=== PATIENT | female | born 1985 | race Caucasian/White ===

== ENCOUNTER 2017-11-24 03:14 | Emergency (ER) | payer OTHER ==
[~2017-11-24] VITALS: Ht 170.2 cm; Wt 95.8 kg
[2017-11-24] MEDS ORDERED: KETOROLAC 15 MG/ML VIAL. IV ONE (04:15)
[2017-11-24] MEDS ORDERED: KETOROLAC 60 MG/2 ML VIAL. IM ONE ×2 (04:23→05:00)
[2017-11-24] MEDS ORDERED: PROCHLORPERAZINE 10 MG/2 ML VIAL. IM ONE (04:30)
[2017-11-24] MEDS ORDERED: IV NORMAL SALINE 1,000ML 1,000 ML IV ONE (04:30)
[2017-11-24] MEDS ORDERED: LIDO:MAALOX 1:1 20 ML SINGLE DOSE PO ONE (04:30)
[2017-11-24 04:36] LABS: BARBITURATES NEG (NEG); BENZODIAZEPINES NEG (NEG); CANNABINOIDS NEG (NEG); COCAINE NEG (NEG); METHADONE NEG (NEG); OPIATES NEG (NEG); PHENCYCLIDINE NEG (NEG)
[2017-11-24 04:39] LABS: CLARITY,URINE CLOUDY; COLOR,URINE AMBER
[2017-11-24 04:40] LABS: BACTERIA,URINE MANY /HPF (0-FEW); BILIRUBIN,URINE NEG (NEG); GLUCOSE,URINE NEG (NEG); NITRITE,URINE POS (NEG); RBC,URINE 20-40 /HPF (0-2); SQUAMOUS EPITHELIAL CELL,UR MOD /LPF; UROBILINOGEN,URINE 4 mg/dL (0.2 mg/dL); WBC,URINE >40 /HPF (0-4)
[2017-11-24 04:42] LABS: AMPHETAMINE/METHAMPHETAMINE POS (NEG)
--- NOTE | 2017-11-24 05:29 | PHYS DOC ---
Past History Past Medical History: No Pertinent History Past Medical History Drug abuse, methamphetamine abuse Past Surgical History: , Tonsillectomy Alcohol Use: None Drug Use: None Adult General Chief Complaint Chief Complaint: RIB PAIN HPI HPI Patient is a 32-year-old female presents with complaints of back and rib pain and right lower chest wall for 3 days as well as headache. Headache is similar to previous. No fevers, no neck pain, no vomiting, no diarrhea. Patient has been having foul-smelling urine, denies any vaginal discharge. Patient initially stated that she does not use recreational drugs. No history of recent trauma or sick contacts Review of Systems Review of Systems Constitutional: Denies fever or chills [] Eyes: Denies change in visual acuity, redness, or eye pain [] HENT: Denies nasal congestion or sore throat [] Respiratory: Denies cough or shortness of breath [] Cardiovascular: No additional information not addressed in HPI [] GI: Denies abdominal pain, nausea, vomiting, bloody stools or diarrhea [] : Denies dysuria or hematuria [] Musculoskeletal: Denies back pain or joint pain [] Integument: Denies rash or skin lesions [] Neurologic: Denies headache, focal weakness or sensory changes [] Endocrine: Denies polyuria or polydipsia [] All other systems were reviewed and found to be within normal limits, except as documented in this note. Current Medications Current Medications Current Medications Medications (Trade) Dose Ordered Sig/Ronni Start Time Stop Time Status Last Admin Dose Admin Ketorolac Tromethamine (Toradol) 60 mg 1X ONCE 11/24/17 05:00 11/24/17 05:01 DC 11/24/17 04:45 60 MG Multi-Ingredient Mouthwash/Gargle (Gi Cocktail) 20 ml 1X ONCE 11/24/17 04:30 11/24/17 04:31 DC 11/24/17 04:36 20 ML Prochlorperazine Edisylate (Compazine) 10 mg 1X ONCE 11/24/17 04:30 11/24/17 04:31 DC 11/24/17 04:36 10 MG Sodium Chloride 1,000 ml @ 1,000 mls/hr 1X ONCE 11/24/17 04:30 11/24/17 05:29 Allergies Allergies Allergies Coded Allergies Type Severity Reaction Last Updated Verified cefpodoxime Allergy Unknown 02/01/15 No gabapentin Allergy Unknown 02/01/15 No Physical Exam Physical Exam Constitutional: Well developed, well nourished, no acute distress, non-toxic appearance. [] HENT: Normocephalic, atraumatic, bilateral external ears normal, oropharynx dry , no oral exudates, nose normal. [] Eyes: EOMI, conjunctiva normal, no discharge. [] Neck: Normal range of motion, no tenderness, supple, no stridor. No LAD, no meningeal signs Cardiovascular:Heart rate regular rhythm, no murmur him equal pulses, normal perfusion Lungs & Thorax: Bilateral breath sounds clear to auscultation, no tachypnea Abdomen: Bowel sounds normal, soft, mild tenderness without guarding or rebound at the right upper quadrant, no masses, no pulsatile masses. [] Skin: Warm, dry, no erythema, no rash. [] Back: Diffuse muscular tenderness, no CVA tenderness. No midline tenderness to palpation, no step-offs Extremities: No tenderness, no DVT, ROM intact, no edema. [] Neurologic: Alert and oriented X 3, normal motor function, normal speech, no focal deficits noted. Ambulates in the ED with normal gait and without assistance Psychologic: Affect normal, judgement normal, mood normal. [] Current Patient Data Lab Results Laboratory Tests Test 11/24/17 03:35 11/24/17 03:55 11/24/17 05:00 Urine Collection Type Void Urine Color Kaylie Urine Clarity Cloudy Urine pH 6.0 Urine Specific Arnett 1.025 Urine Protein >100 mg/dl (NEG-TRACE) Urine Glucose (UA) Neg mg/dL (NEG) Urine Ketones (Stick) Neg mg/dL (NEG) Urine Blood Large (NEG) Urine Nitrite Pos (NEG) Urine Bilirubin Neg (NEG) Urine Urobilinogen Dipstick 4 mg/dL (0.2 mg/dL) Urine Leukocyte Esterase Neg (NEG) Urine RBC 20-40 /HPF (0-2) Urine WBC >40 /HPF (0-4) Urine Squamous Epithelial Cells Mod /LPF Urine Bacteria Many /HPF (0-FEW) Urine Mucus Slight /LPF Urine Opiates Screen Neg (NEG) Urine Methadone Screen Neg (NEG) Urine Barbiturates Neg (NEG) Urine Phencyclidine Screen Neg (NEG) Urine Amphetamine/Methamphetamine Pos (NEG) Urine Benzodiazepines Screen Neg (NEG) Urine Cocaine Screen Neg (NEG) Urine Cannabinoids Screen Neg (NEG) Urine Ethyl Alcohol Neg (NEG) POC Urine HCG, Qualitative hcg negative (Negative) EKG EKG [] Radiology/Procedures Radiology/Procedures Preliminary chest x-ray read no acute disease[] US: no findings of cholecystitis or stones Course & Med Decision Making Course & Med Decision Making Pertinent Labs and Imaging studies reviewed. (See chart for details) [] Dragon Disclaimer Dragon Disclaimer This electronic medical record was generated, in whole or in part, using a voice recognition dictation system. Departure Departure: Impression: Primary Impression: Drug abuse Additional Impressions: Abdominal pain Urinary tract infection Dehydration Disposition: HOME, SELF-CARE Condition: STABLE Referrals: LESA KUMAR (PCP) Please follow with your doctor for recheck and reevaluation in one to 2 days Patient Instructions: Abdominal Pain (Nonspecific), Dehydration, Adult, Drug Abuse, FAQs, Urinary Tract Infection Scripts Ciprofloxacin Hcl (CIPRO) 500 Mg Tablet 1 TAB PO BID for 10 Days, #20 TAB Prov: Kathe CHANEY MD 11/24/17 Naproxen (NAPROXEN) 375 Mg Tablet 1 TAB PO BID for 5 Days, #10 TAB 5 Refills Prov: Kathe CHANEY MD 11/24/17 Problem Qualifiers Kathe CHANEY MD Nov 24, 2017 05:28
--- NOTE | 2017-11-24 05:36 | RAD ---
Ultrasound of the abdomen limited. HISTORY: Right upper quadrant pain Ultrasound was used to evaluate the gallbladder, liver and right upper quadrant. The pancreas is incompletely evaluated. The mid pancreas appeared normal. Liver was within normal limits in size and appearance without a focal lesion. Right kidney was 14 cm in length without a mass or hydronephrosis. Gallbladder was contracted. Gallstones were not identified. The gallbladder wall was not thickened. Common duct was normal measuring 3 mm. Patient had tenderness in the right upper quadrant which is nonspecific. IMPRESSION: 1. Contracted gallbladder. 2. No gallstones noted. 3. Limited evaluation of the pancreas. Electronically signed by: Jake Merritt MD (11/24/2017 5:32 AM) [id number]
[2017-11-24 05:37] LABS: BASO % 0 % (0-3); EOS % 0 % (0-3); HEMATOCRIT 39.5 % (36.0-47.0); HEMOGLOBIN 13.7 g/dL (12.0-15.5); LYMPH % 6 % (24-48); MEAN CORPUSCULAR HEMOGLOBIN 32 pg (25-35); MEAN CORPUSCULAR HGB CONC 35 g/dL (31-37); MEAN CORPUSCULAR VOLUME 92 fL (79-100); MONO # 1.7 x10^3/uL (0.0-1.1); MONO % 10 % (0-9); NEUT # 14.3 x10^3uL (1.8-7.7); NEUT % 84 % (31-73); PLATELET COUNT 146 x10^3/uL (140-400); RED BLOOD COUNT 4.29 x10^6/uL (3.50-5.40); RED CELL DISTRIBUTION WIDTH 11.7 % (11.5-14.5)
[2017-11-24 05:52] LABS: ALBUMIN 2.8 g/dL (3.4-5.0); ALBUMIN/GLOBULIN RATIO 0.6 (1.0-1.7); CALCIUM 8.7 mg/dL (8.5-10.1); GFR 64.7; POTASSIUM 3.6 mmol/L (3.5-5.1); TOTAL BILIRUBIN 0.5 mg/dL (0.2-1.0); TOTAL PROTEIN 7.6 g/dL (6.4-8.2)
[2017-11-24 06:03] LABS: % BANDS 20 % (0-9); % LYMPHS 7 % (24-48); % MONOS 8 % (0-10); % SEGS 65 % (35-66); PLT ESTIMATE ADEQUATE (ADEQUATE)
[2017-11-24 06:04] LABS: HYPERSEGS PRESENT; TOXIC GRANULATION MOD; TOXIC VACUOLATION MOD
[2017-11-24] MEDS ORDERED: CIPR500T94 PO (06:10)
[2017-11-24] MEDS ORDERED: NAPR-695 PO (06:10)
[2017-11-24 06:30] VITALS: BP 109/57
--- NOTE | 2017-11-24 08:02 | RAD ---
PA and lateral views of the chest were obtained. History: Chest pain Comparison: none The heart and pulmonary vasculature appear within normal limits. The lungs are clear. The pleural margins are clear. There is a calcified granuloma on the left. Impression: 1. No acute chest process is seen.
== END 2017-11-24 06:30 | disposition home or self-care (01) ==
LOC: ER 03:14
DX: N39.0 Urinary tract infection, site not specified (principal); E86.0 Dehydration; F15.10 Other stimulant abuse, uncomplicated; Z98.890 Other specified postprocedural states; Z88.8 Allergy status to other drugs, medicaments and biological substances
CPT/HCPCS: 36415; 71046; 76705; 80053; 80307; 81001; 81025; 83690; 85007; 85025; 87086; 87186; 96360; 96372; 99285; J0780; J1885; G0479; J7030